=== PATIENT | female | born 1990 | race Caucasian/White ===

== ENCOUNTER 2021-08-23 19:08 | Inpatient (IN) | payer BC, SELFPAY ==
[~2021-08-23 19:08] MED LIST: Bupivacaine 0.25% HCL 30 ML VIAL ONE
[2021-08-23] MEDS ORDERED: Docusate 100 MG CAP PO PRN (19:23)
[2021-08-23] MEDS ORDERED: Promethazine HCl 25 MG/ML VIAL IM PRN (19:23)
[2021-08-23] MEDS ORDERED: NS w/ Oxytocin 30 units 500 ML IV SCH ×2 (19:23)
[2021-08-23] MEDS ORDERED: Butorphanol Tartrate 1 MG/ML VIAL SLOW IVP PRN (19:23)
[2021-08-23] MEDS ORDERED: HYDROcodone/Acetaminophen 5/325 mg Tablet PO PRN ×2 (19:23)
[2021-08-23] MEDS ORDERED: NS w/ Oxytocin 30 units 500 ML IVPB SCH (19:23)
[2021-08-23] MEDS ORDERED: Zolpidem Tartrate 5 MG TAB PO PRN (19:23)
[2021-08-23] MEDS ORDERED: Ibuprofen 800 MG TAB PO PRN (19:23)
[2021-08-23] MEDS ORDERED: Ondansetron PF 4 MG/2 ML Vial IVP PRN (19:23)
[2021-08-23] MEDS ORDERED: Lidocaine 1% (PF) 30 ML VIAL SC PRN (19:23)
[2021-08-23] MEDS ORDERED: Diphenoxylate HCl/Atropine Tablet PO PRN ×2 (19:23)
[2021-08-23] MEDS ORDERED: hydrALAZINE 20 MG/ML VIAL SLOW IVP PRN (19:23)
[2021-08-23] MEDS ORDERED: Misoprostol 200 MCG TAB PR PRN (19:23)
[2021-08-23] MEDS ORDERED: Acetaminophen 500 MG TAB PO PRN (19:23)
[2021-08-23 19:32] VITALS: BMI 29.3
[2021-08-23 20:13] LABS: Hemoglobin 11.4 g/dL (12.0-15.5); Mean Corpuscular HGB CONC 33.5 g/dL (32.0-36.0); Mean Corpuscular Hemoglobin 29.9 pg (27.0-33.0); Mean Corpuscular Volume 89.2 fl (81.6-98.3); Mean Platelet Volume 10.7 fl (7.4-10.4); Platelet Count 173 10x3/uL (150-450); RBC Distribution Width 13.3 % (11.5-14.5); Red Blood Cell (RBC) Count 3.81 10x6/uL (3.90-5.03); White Blood Cell (WBC) Count 9.4 10x3/uL (3.5-10.5)
[2021-08-23] MEDS: Misoprostol 100 MCG TAB VAG SCH (20:19)
[2021-08-23 20:46] LABS: Syphilis Antibody Nonreactive (Nonreactive); Syphilis Antibody Index 0.05 S/CO (<1.00 Non-Reactive)
[2021-08-23 20:47] LABS: Hep B Surf Ag Non-Reactive S/CO (NonReactive)
[2021-08-23 20:57] LABS: HBSAg Index 0.19 S/CO (0-0.99)
[2021-08-24] MEDS ORDERED: Fentanyl 2 mcg/Bup 0.1% Cadd 100 ML ONE ×2 (09:22→16:33)
[2021-08-24] MEDS ORDERED: Hydrocerin (Eucerin) Cream 120 gm Jar TOP PRN (09:33)
[2021-08-24] MEDS ORDERED: Ondansetron PF 4 MG/2 ML Vial IVP PRN ×2 (09:33→18:22)
[2021-08-24] MEDS ORDERED: Lactated Ringer's 500 ML IV PRN (09:33)
[2021-08-24] MEDS ORDERED: Acetaminophen 325 MG TAB PO PRN (09:33)
[2021-08-24] MEDS ORDERED: ePHEDrine Sulfate 50 MG/10 ML VIAL SLOW IVP PRN (09:33)
[2021-08-24] MEDS ORDERED: Naloxone HCl 0.4 mg/ml Vial IVP PRN ×2 (09:33)
[2021-08-24] MEDS ORDERED: diphenhydrAMINE 50 MG/ML VIAL IVP PRN (09:33)
[2021-08-24] MEDS ORDERED: Promethazine HCl 25 MG/ML VIAL IM PRN (09:33)
[2021-08-24] MEDS ORDERED: Fentanyl 2 mcg/Bupivacaine 0.1% Cassette 100 ML EPIDURAL SCH (09:45)
[2021-08-24] MEDS ORDERED: Communication Order-Pharmacy FS SCH (09:45)
[2021-08-24] MEDS: Lactated Ringer's 1,000 ML IV SCH ×2 (09:51→22:28)
[2021-08-24] MEDS ORDERED: Lanolin Ointment 7 GM TUBE TOP PRN (18:22)
[2021-08-24] MEDS ORDERED: hydrALAZINE 20 MG/ML VIAL SLOW IVP PRN (18:22)
[2021-08-24] MEDS ORDERED: Preparation H Ointment 28 GM TUBE PR PRN (18:22)
[2021-08-24] MEDS ORDERED: Bisacodyl 10 MG SUPP PR PRN (18:22)
[2021-08-24] MEDS ORDERED: diphenhydrAMINE 25 MG CAP PO PRN (18:22)
[2021-08-24] MEDS ORDERED: Milk Of Magnesia 30 ML UDCUP PO PRN (18:22)
[2021-08-24] MEDS ORDERED: Misoprostol 200 MCG TAB VAG PRN (18:22)
[2021-08-24] MEDS ORDERED: Boostrix 0.5 ML (Tdap) VIAL IM ONE (18:22)
[2021-08-24] MEDS ORDERED: Benzocaine-Menthol 82.5 ML CAN TOP PRN (18:22)
[2021-08-24] MEDS ORDERED: NS w/ Oxytocin 30 units 500 ML IV SCH (18:30)
[2021-08-24] MEDS: Docusate Calcium (SURFAK) 240 MG CAP PO SCH (22:01)
[2021-08-24] MEDS: Ibuprofen 800 MG TAB PO SCH (22:01)
[2021-08-24] MEDS: Misoprostol 100 MCG TAB VAG SCH ×3 (22:27→22:28)
[2021-08-24] MEDS ORDERED: Zolpidem Tartrate 5 MG TAB PO PRN (22:30)
[2021-08-24] MEDS ORDERED: HYDROcodone/Acetaminophen 5/325 mg Tablet PO PRN ×2 (22:30)
[2021-08-25] MEDS: Ibuprofen 800 MG TAB PO SCH ×3 (05:56→21:45)
[2021-08-25] MEDS: Ferrous Sulfate 325 MG TAB PO SCH ×2 (08:30→16:43)
[2021-08-25] MEDS: Prenatal Vitamin 1 TAB PO SCH (09:11)
[2021-08-25] MEDS: Docusate Calcium (SURFAK) 240 MG CAP PO SCH ×2 (09:11→21:45)
[2021-08-26] MEDS: Ibuprofen 800 MG TAB PO SCH ×2 (05:16→13:48)
[2021-08-26 08:01] VITALS: BP 113/69; TEMP 97.8
[2021-08-26] MEDS: Ferrous Sulfate 325 MG TAB PO SCH (08:23)
[2021-08-26] MEDS: Docusate Calcium (SURFAK) 240 MG CAP PO SCH (08:23)
[2021-08-26] MEDS: Prenatal Vitamin 1 TAB PO SCH (08:23)
== END 2021-08-26 16:00 | disposition home or self-care (01) | DRG 806 ==
LOC: CSHLD 19:08 → CSHPP 08-24 21:15
PROVIDERS: ADMIT Obstetrics & Gynecology; ATTEND Obstetrics & Gynecology
PROC: 3E033VJ Introduction of Other Hormone into Peripheral Vein, Percutaneous Approach (ICD-10-PCS; 2021-08-23)
PROC: 10E0XZZ Delivery of Products of Conception, External Approach (ICD-10-PCS; principal; 2021-08-24)
PROC: 0KQM0ZZ Repair Perineum Muscle, Open Approach (ICD-10-PCS; 2021-08-24)
PROC: 10907ZC Drainage of Amniotic Fluid, Therapeutic from Products of Conception, Via Natural or Artificial Opening (ICD-10-PCS; 2021-08-24)
DX: O99.02 Anemia complicating childbirth (principal); O99.354 Diseases of the nervous system complicating childbirth; Z37.0 Single live birth; Z3A.39 39 weeks gestation of pregnancy; D64.9 Anemia, unspecified; O99.824 Streptococcus B carrier state complicating childbirth; G43.909 Migraine, unspecified, not intractable, without status migrainosus; O70.1 Second degree perineal laceration during delivery; Z79.899 Other long term (current) drug therapy; Z86.16 Personal history of COVID-19
CPT/HCPCS: 51702; 85027; 86780; 86850; 86900; 86901; 87340; J2001; J2405; J7120; S0020